=== PATIENT | female | born 1955 | race Caucasian/White ===

== ENCOUNTER 2019-03-03 08:39 | Day surgery (SDC) | payer BC ==
[~2019-03-03 08:39] MED LIST: LIDOCAINE HCL 1% MPF 30 SOL ONE; PROPOFOL 500 MG/50 ML EMU IV ONE
[2019-03-03 10:55] VITALS: BP 139/83; PULSE 87; RESP 20; TEMP 97.5; O2SAT 99
== END 2019-03-03 11:18 | disposition home or self-care (01) ==
LOC: SURG 08:39
PROVIDERS: ATTEND Surgery
DX: Z12.11 Encounter for screening for malignant neoplasm of colon (principal); Z80.0 Family history of malignant neoplasm of digestive organs; K63.5 Polyp of colon
CPT/HCPCS: 99001; J2001; J2704